=== PATIENT | female | born 1975 | race Caucasian/White ===

== ENCOUNTER 2022-04-10 20:12 | Emergency (ER) | payer BC, OTHER ==
[~2022-04-10] VITALS: Ht 177.8 cm; Wt 115.9 kg
[~2022-04-10 20:12] MED LIST: HYDR1TAB PO; LIRA0.6P SQ; WEL625T PO
[2022-04-10 20:41] VITALS: BP 152/105
[2022-04-10] MEDS ORDERED: fentaNYL 50MCG/ML 2ML intranasal KIT (WASTE REMAINDER W/WITNESS) NAS STA (20:55)
[2022-04-10] MEDS ORDERED: LIDOcaine 1% 30ml preserv. free vial IJ ONE (21:25)
[2022-04-10] MEDS ORDERED: BUPIVAcaine/PF 2.5mg/ml (0.25%) 10ml vial IJ ONE (21:35)
[2022-04-10] MEDS ORDERED: fentaNYL/PF 50MCG/1 ML 2ML syringe IV ONE ×2 (22:05→22:25)
[2022-04-10] MEDS ORDERED: HYDROmorphone 2mg tablet PO ONE (22:30)
== END 2022-04-10 23:18 | disposition home or self-care (01) ==
LOC: ER 20:13
DX: S52.501A Unspecified fracture of the lower end of right radius, initial encounter for closed fracture (principal); Z88.0 Allergy status to penicillin; X58.XXXA Exposure to other specified factors, initial encounter; Y93.89 Activity, other specified; Y92.89 Other specified places as the place of occurrence of the external cause; Y99.8 Other external cause status
CPT/HCPCS: 25605; 73110; 96374; 99284; J3010; A4565; A6449